=== PATIENT | male | born 1970 | race Caucasian/White ===

== ENCOUNTER 2017-07-08 22:12 | Emergency (ER) | payer SELFPAY ==
[~2017-07-08] VITALS: Ht 203.2 cm; Wt 136.1 kg
[~2017-07-08 22:12] MED LIST: CLIN300C8 PO; DIPH50VI12 PO; PRED5TAB PO
[2017-07-08 22:28] VITALS: BP 179/94
[2017-07-09] MEDS ORDERED: IBUPROFEN 600 MG TABLET. PO ONE
--- NOTE | 2017-07-09 06:24 | ED.ADGEN ---
Past History Past Medical History: Hypertension Past Surgical History: Other Smoking: Non-smoker Alcohol Use: Heavy Drug Use: None Adult General Chief Complaint Chief Complaint Left ankle pain HPI HPI Patient is a 6 foot, 8 inch male who presents with left ankle pain after climbing up and down ladders all day today. Denies illicit injury. [] Review of Systems Review of Systems Review symptoms as per history of present illness. Current Medications Current Medications Current Medications Medications (Trade) Dose Ordered Sig/Cameron Start Time Stop Time Status Last Admin Dose Admin Ibuprofen (Motrin) 600 mg 1X ONCE 07/09/17 00:00 07/09/17 01:59 DC 07/09/17 00:00 600 MG Allergies Allergies Allergies Coded Allergies Type Severity Reaction Last Updated Verified No Known Drug Allergies 03/16/14 No Physical Exam Physical Exam Constitutional: Well developed, well nourished, no acute distress, non-toxic appearance. [] HENT: Normocephalic, atraumatic, bilateral external ears normal, oropharynx moist, no oral exudates, nose normal. [] Eyes: PERRLA, EOMI, conjunctiva normal, no discharge. [] Neck: Normal range of motion, no tenderness, supple, no stridor. [] Cardiovascular:Heart rate regular rhythm, no murmur [] Lungs & Thorax: Bilateral breath sounds clear to auscultation [] Abdomen: Bowel sounds normal, soft, no tenderness, no masses, no pulsatile masses. [] Skin: Warm, dry, no erythema, no rash. [] Back: No tenderness, no CVA tenderness. [] Extremities: Left ankle, no deformity, mild diffuse edema, tenderness over anterior ankle. Minimal pain with range of motion, no rash or bony tenderness. [ ] Neurologic: Alert and oriented X 3, normal motor function, normal sensory function, no focal deficits noted. [] Psychologic: Affect normal, judgement normal, mood normal. [] Current Patient Data Vital Signs Vital Signs Date Time Temp Pulse Resp B/P (MAP) Pulse Ox O2 Delivery O2 Flow Rate FiO2 07/08/17 22:28 97.4 92 20 97 Room Air 07/08/17 22:28 179/94 (122) EKG EKG [] Radiology/Procedures Radiology/Procedures [X-ray right ankle, mild soft tissue swelling] Course & Med Decision Making Course & Med Decision Making Pertinent Labs and Imaging studies reviewed. (See chart for details) [Suspect arthritis or overuse syndrome. Recommend supportive treatment with PCP follow-up.] Final Impression Final Impression [#1 left ankle pain] Problems: Dragdiann Disclaimer Dragon Disclaimer This electronic medical record was generated, in whole or in part, using a voice recognition dictation system. MASSIMO MCMAHON DO Jul 09, 2017 06:24
--- NOTE | 2017-07-09 07:38 | RAD ---
Left ankle, 3 views, 07/08/2017: History: Severe ankle pain No fracture or or dislocation is identified. There are mild degenerative changes at the ankle joint. There is evidence of an ankle joint effusion. There is mild subcutaneous edema. IMPRESSION: 1. Mild degenerative change at the ankle joint. 2. Small joint effusion. 3. No acute bony abnormality is detected.
== END 2017-07-09 | disposition home or self-care (01) ==
LOC: ER 22:12
DX: M25.572 Pain in left ankle and joints of left foot (principal); I10 Essential (primary) hypertension; F10.10 Alcohol abuse, uncomplicated; X58.XXXA Exposure to other specified factors, initial encounter; Y93.89 Activity, other specified; Y99.8 Other external cause status; Y92.89 Other specified places as the place of occurrence of the external cause
CPT/HCPCS: 73610; 99284

== ENCOUNTER 2017-08-20 09:53 | Emergency (ER) | payer SELFPAY ==
[~2017-08-20] VITALS: Ht 203.2 cm; Wt 110.2 kg
[2017-08-20] MEDS ORDERED: IV NORMAL SALINE 1,000ML 1,000 ML IV SCH (10:11)
[2017-08-20 10:15] VITALS: BP 158/103
[2017-08-20] MEDS ORDERED: 0.9 % SODIUM CHLORIDE 10 ML DISP.SYRIN. IV PRN (10:15)
--- NOTE | 2017-08-20 10:16 | PHYS DOC ---
Past History Past Medical History: Hypertension Past Surgical History: Other Smoking: Non-smoker Alcohol Use: Heavy Drug Use: Marijuana Adult General Chief Complaint Chief Complaint: CHEST PAIN HPI HPI He is a pleasant 47-year-old male with a history of hypertension who presents with chest pain that began last week. 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 Describes a dull ache across his left chest with no radiation other than to left shoulder and arm with movements. The pain is described as dull and achy that is continuously waxing and waning based on movement of the arm. Intact patient is noted he has not been using his left shoulder much secondary to the discomfort. 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 Patient denies any numbness or tingling, shortness of breath, lightheaded dizziness or nausea vomiting or diarrhea. He said he had a little bit of nausea when he first explains the pain last week. He is also concerned that his friend 2 weeks ago suffered a heart attack when he [place]. He has a significant family history and father passed at age 52 from a major heart attack. He denies any cough,, URI symptoms, travel outside the country, lower leg swelling or pain , trauma to his chest wall or other symptoms. Differential diagnosis for chest pain: Pericarditis, myocarditis, endocarditis, pneumothorax, pneumonia, aortic dissection, esophageal spasm, esophagitis, peptic ulcer disease, acute coronary syndrome, mediastinitis, Boerhaave syndrome , musculoskeletal chest wall pain, costochondritis, intercostal strain, rib fracture, pulmonary contusion, pneumonitis, pleural effusion, pericardial effusion, pericardial tamponode, and pleurisy. Review of Systems Review of Systems Constitutional: Denies fever or chills [] Eyes: Denies change in visual acuity, redness, or eye pain [] HENT: Denies nasal congestion or sore throat [] Respiratory: Denies cough or shortness of breath [] Cardiovascular: No additional information not addressed in HPI [] GI: Denies abdominal pain, vomiting diarrhea or loose stools. Patient has had mild nausea : Denies dysuria or hematuria [] Musculoskeletal: Denies back pain or joint pain [] Integument: Denies rash or skin lesions [] Neurologic: Denies headache, focal weakness or sensory changes [] Endocrine: Denies polyuria or polydipsia [] Allergies Allergies Allergies Coded Allergies Type Severity Reaction Last Updated Verified No Known Drug Allergies 03/16/14 No Physical Exam Physical Exam Vital signs recorded on the chart patient had be hypertensive. Constitutional: Well developed, well nourished, no acute distress, non-toxic appearance. [] HENT: Normocephalic, atraumatic, bilateral external ears normal, oropharynx moist, no oral exudates, nose normal. [] Eyes: PERRLA, EOMI, conjunctiva normal, no discharge. [] Neck: Normal range of motion, no tenderness, supple, no stridor. [] Cardiovascular:Heart rate regular rhythm, no murmur patient is a slight chest wall tenderness to palpation and is slightly reproducible on exam with no clear decreased range of motion of the shoulder. Lungs & Thorax: Bilateral breath sounds clear to auscultation [] Abdomen: Bowel sounds normal, soft, no tenderness, no masses, no pulsatile masses. [] Skin: Warm, dry, no erythema, no rash. [] ] Extremities: No tenderness, no cyanosis, no clubbing, ROM intact, no edema. [] Neurologic: Alert and oriented X 3, normal motor function, normal sensory function, no focal deficits noted. [] Psychologic: Affect normal, judgement normal, mood normal. [] EKG EKG EKG timed 9:59 AM 08/23/2017 read by me demonstrated Peter QRS normal sinus rhythm with a heart rate of 71 NC interval of 186 which is normal QRS width of 94 which is normal QTC which is with her hypertension normal there is occasional PVC[] Radiology/Procedures Radiology/Procedures [] [address] [address] IMAGING REPORT Signed PATIENT: TRISTON BERGER ACCOUNT: [id number] : 1970 LOCATION: ER AGE: 47 SEX: M EXAM STATUS: REG ER ORD. PHYSICIAN: CATHY PEREZ MD REASON: chest pain PROCEDURE: CHEST PA & LATERAL Chest radiograph 08/20/2017 12:11 PM Indication: Chest pain Comparison: None available Technique: PA and lateral views of the chest are provided. Findings: Cardiomediastinal silhouette is within normal limits. No pleural effusions, pulmonary vascular congestion or pneumothorax. There is a 7.4 x 8.1 x 9.2 cm circumscribed left posterior mediastinal mass. There is no definite splaying of the posterior ribs. No erosion of the thoracic vertebrae is noted. Osseous structures are normal. Impression: 7.4 x 8.1 x 9.2 cm circumscribed mass in the left posterior mediastinum. Consideration may be given for a peripheral nerve sheath tumor such as a schwannoma or neurofibroma. Alternatively a cystic mass such as a bronchogenic cyst, enteric duplication cyst or neuroenteric cyst is a consideration. Additional solid masses would include metastatic disease. Further evaluation with chest CT with contrast is recommended. Critical findings were discussed with Dr. Perez, at 11:05 AM on 08/20/2017. DICTATED AND SIGNED BY: MAYCOL RUBIO MD DATE: 08/20/17 1059 CC: CATHY PEREZ MD; LIONEL ROUSE MD ~ [place] [id number] IMAGING REPORT Signed PATIENT: TRISTON BERGER ACCOUNT: [id number] : 1970 LOCATION: ER AGE: 47 SEX: M EXAM STATUS: REG ER ORD. PHYSICIAN: CATHY PEREZ MD REASON: abnormal Chest xray and chest pain PROCEDURE: CT CHEST W/CONTRAST CT chest with contrast 08/20/2017 Indication: Posterior mediastinal mass on chest radiograph. Comparison: Chest radiograph 08/20/2017 Technique: Multiple axial CT images of the chest were obtained after the administration of 75 mL Omnipaque 300 intravenously. Coronal and sagittal reformats are provided. Findings: Thyroid gland is normal in appearance. There are no pathologically enlarged lymph nodes in the axilla, mediastinum or hilar region. Heart size is within normal limits. There is no pericardial effusion. Thoracic aorta is normal in course and caliber. Calcified subcarinal lymph node is present. There is a 6.5 x 6.8 x 7.4 cm (AP by transverse by craniocaudal) cystic mass along the medial pleura in the left posterior mediastinum. There is a fat plane between the thoracic aorta and the cystic mass. There is no osseous erosion identified. There is no extension into the neural foramen. No osseous erosion of the adjacent ribs. There is adjacent subsegmental atelectasis. There is a 5 mm calcified granuloma in the right middle lobe. Visualized portions of the liver appear normal. Calcic effusions of the spleen likely represents sequela of prior granulomatous exposure. Visualized portions of the adrenal glands, pancreas and gallbladder are within normal limits. No suspicious osseous lesions are identified. Impression: 6.5 x 6.8 x 7.4 cm cystic lesion is identified along the medial pleura in the left posterior mediastinum. Findings are suspicious for a bronchogenic cyst versus enteric duplication cyst. A less likely consideration would be given for a cystic schwannoma. PQRS Compliance Statement: One or more of the following individualized dose reduction techniques were utilized for this examination: 1. Automated exposure control 2. Adjustment of the mA and/or kV according to patient size 3. Use of iterative reconstruction technique DICTATED AND SIGNED BY: MAYCOL RUBIO MD DATE: 08/20/17 1140 CC: CATHY PEREZ MD; LIONEL ROUSE MD ~ Course & Med Decision Making Course & Med Decision Making Pertinent Labs and Imaging studies reviewed. (See chart for details) he presents with chest pain of unclear etiology, Differential diagnosis for chest pain: Pericarditis, myocarditis, endocarditis, pneumothorax, pneumonia, aortic dissection, esophageal spasm, esophagitis, peptic ulcer disease, acute coronary syndrome, mediastinitis, Boerhaave syndrome, musculoskeletal chest wall pain, costochondritis, intercostal strain, rib fracture, pulmonary contusion, pneumonitis, pleural effusion, pericardial effusion, pericardial tamponode, and pleurisy. Was considered upon arrival patient's EKG was was unremarkable for any signs of ischemic distress or injury. Patient has a negative troponin negative proBNP negative CBC negative white count. Patient's pain is markedly improved here in the ER. Time is now 10:45 AM her review of patient's chest x-ray shows a concerning mass on the posterior wall of the left lung. It is unclear etiology distress from it could be around mass secondary to a cyst, infection or solid tumor. []Hospital radiologist called and talked about the etiology possible mass at [address] with IV contrast is reported and ordered to better characterize this mass. Is now 12:[address] scan reveals a bronchogenic cyst unlikely as a source the mass in the posterior lateral aspect of the left lung. Patient's cardiac workup is unremarkable for signs of heart damage. This does not mean he does not have heart disease. History: History was low risk based on findings listed below patient okay for discharge and follow-up with his primary care doctor Highly suspicious 2 points moderately suspicious 1. slightly suspicious 0 point EKG: ST segment depression 2. nonspecific repolarization disturbance 1. normal 0 point Age: Greater than 65 2 points, 65-45 1., less than 45 years old 0 points Risk factors:> 3 risk factors 2 points, 1-2 risk factors one point, no risk factors 0 point Troponin: > 2 times normal 2 points, 1-2 times normal 1., normal limits 0 point Total score: Score % pts MACE/n MACE Policy 0-3 32% 1.9% 0.05% Discharge 4-6 51% 413/3136 13% 1.3% Observation Risk management 7-10 17% 518/1045 50% 2.8% Observation Treatment, CAGB Impression: Hypertension, chest pain of unclear etiology, bronchogenic cyst lung mass Dragon Disclaimer Dragon Disclaimer This chart was dictated in whole or in part using Voice Recognition software in a busy, high-work load, and often noisy Emergency Department environment. It may contain unintended and wholly unrecognized errors or omissions. Departure Departure: Impression: Primary Impression: Lung mass Additional Impressions: Chest pain Hypertension Disposition: 01 HOME, SELF-CARE Condition: IMPROVED Referrals: LIONEL ROUSE MD (PCP) Patient Instructions: Chest Pain (Nonspecific), Hypertension Additional Instructions: My discharge plan Although you have low risk chest pain you May still have heart disease despite having an apparent negative workup today. I would advise that you follow-up with your primary care doctor this week to arrange follow-up with her national service officer. The national service officer will help stratify your risk for heart injury in the future. Follow up: In addition patient is asked to followup with their primary doctor, within a week for followup examination and to address patient's ongoing medical conditions. Because patient does not have a regular medical doctor, the [facility] Resource Sheet will be provided to establish care primary care. Patient is advised that in the Emergency Department primary complaints are addressed and only in light of known signs and symptoms. Patient should return immediately to the emergency department if new signs and symptoms develop or patient's condition worsens in any way. At time of discharge patient was in stable condition and had verbalized understanding of the discharge instructions. Also have a mass noted on her CT scan of your chest and your chest x-ray which is an abnormal finding and will need to be followed up by a child welfare counselor. Scripts Diazepam (VALIUM) 5 Mg Tablet 5 MG PO TID for MUSCLE SPASMS for 5 Days, #15 TAB Please use one tablet every 8 hours as needed for muscle spasms. Do not drink alcohol or use other narcotics with this medication. Prov: CATHY PEREZ MD 08/20/17 Naproxen Sodium (NAPROXEN SODIUM) 275 Mg Tablet 275 MG PO BID for 7 Days, #14 TAB Prov: CATHY PEREZ MD 08/20/17 Hydrocodone Bit/Acetaminophen (HYDROCODONE-APAP 5-325 ) 1 Each Tablet 1 TAB PO PRN Q6HRS Y for PAIN for 5 Days, #10 TAB 0 Refills Prov: CATHY PEREZ MD 08/20/17 Problem Qualifiers CATHY PEREZ MD Aug 20, 2017 10:16
[2017-08-20] MEDS ORDERED: ASPIRIN 81 MG TAB.CHEW PO ONE (10:40)
[2017-08-20 10:44] LABS: BASO # 0.1 x10^3/uL (0.0-0.2); BASO % 1 % (0-3); EOS # 0.3 x10^3/uL (0.0-0.7); EOS % 4 % (0-3); HEMATOCRIT 45.1 % (39.0-53.0); HEMOGLOBIN 15.3 g/dL (13.0-17.5); LYMPH # 2.1 x10^3/uL (1.0-4.8); LYMPH % 25 % (24-48); MEAN CORPUSCULAR HEMOGLOBIN 30 pg (25-35); MEAN CORPUSCULAR HGB CONC 34 g/dL (31-37); MEAN CORPUSCULAR VOLUME 87 fL (79-100); MONO # 0.7 x10^3/uL (0.0-1.1); MONO % 9 % (0-9); NEUT # 5.4 x10^3uL (1.8-7.7); NEUT % 62 % (31-73); PLATELET COUNT 245 x10^3/uL (140-400); RED BLOOD COUNT 5.17 x10^6/uL (4.30-5.70); RED CELL DISTRIBUTION WIDTH 13.7 % (11.5-14.5); WHITE BLOOD COUNT 8.6 x10^3/uL (4.0-11.0)
--- NOTE | 2017-08-20 11:02 | EKG ---
[address] [address] Test Date: 2017-08-20 Test Time: 09:59:51 Pat Name: TRSITON BERGER Department: Room: Gender: Independent Contractor: : 1970 Requested By: CATHY PEREZ Order Number: [id number] Reading MD: Paul Paz Measurements Intervals [place] Rate: P: GA: QRS: QRSD: T: QT: QTc: Interpretive Statements SR PVC Electronically Signed On 08-28-2017 8:15:25 CDT by Paul Paz
[2017-08-20 11:05] LABS: ALBUMIN 3.9 g/dL (3.4-5.0); CALCIUM 9.1 mg/dL (8.5-10.1); CREATININE 0.9 mg/dL (0.7-1.3); DIRECT BILIRUBIN 0.1 mg/dL (0.0-0.2); GFR 89.7; POTASSIUM 4.7 mmol/L (3.5-5.1); TOTAL BILIRUBIN 0.4 mg/dL (0.2-1.0); TOTAL PROTEIN 7.6 g/dL (6.4-8.2)
--- NOTE | 2017-08-20 11:10 | RAD ---
Chest radiograph 08/20/2017 12:11 PM Indication: Chest pain Comparison: None available Technique: PA and lateral views of the chest are provided. Findings: Cardiomediastinal silhouette is within normal limits. No pleural effusions, pulmonary vascular congestion or pneumothorax. There is a 7.4 x 8.1 x 9.2 cm circumscribed left posterior mediastinal mass. There is no definite splaying of the posterior ribs. No erosion of the thoracic vertebrae is noted. Osseous structures are normal. Impression: 7.4 x 8.1 x 9.2 cm circumscribed mass in the left posterior mediastinum. Consideration may be given for a peripheral nerve sheath tumor such as a schwannoma or neurofibroma. Alternatively a cystic mass such as a bronchogenic cyst, enteric duplication cyst or neuroenteric cyst is a consideration. Additional solid masses would include metastatic disease. Further evaluation with chest CT with contrast is recommended. Critical findings were discussed with Dr. Sal, at 11:05 AM on 08/20/2017.
[2017-08-20] MEDS ORDERED: IOHEXOL 300 MG/ML 75 ML VIAL. IV ONE (11:30)
--- NOTE | 2017-08-20 11:50 | RAD ---
CT chest with contrast 08/20/2017 Indication: Posterior mediastinal mass on chest radiograph. Comparison: Chest radiograph 08/20/2017 Technique: Multiple axial CT images of the chest were obtained after the administration of 75 mL Omnipaque 300 intravenously. Coronal and sagittal reformats are provided. Findings: Thyroid gland is normal in appearance. There are no pathologically enlarged lymph nodes in the axilla, mediastinum or hilar region. Heart size is within normal limits. There is no pericardial effusion. Thoracic aorta is normal in course and caliber. Calcified subcarinal lymph node is present. There is a 6.5 x 6.8 x 7.4 cm (AP by transverse by craniocaudal) cystic mass along the medial pleura in the left posterior mediastinum. There is a fat plane between the thoracic aorta and the cystic mass. There is no osseous erosion identified. There is no extension into the neural foramen. No osseous erosion of the adjacent ribs. There is adjacent subsegmental atelectasis. There is a 5 mm calcified granuloma in the right middle lobe. Visualized portions of the liver appear normal. Calcic effusions of the spleen likely represents sequela of prior granulomatous exposure. Visualized portions of the adrenal glands, pancreas and gallbladder are within normal limits. No suspicious osseous lesions are identified. Impression: 6.5 x 6.8 x 7.4 cm cystic lesion is identified along the medial pleura in the left posterior mediastinum. Findings are suspicious for a bronchogenic cyst versus enteric duplication cyst. A less likely consideration would be given for a cystic schwannoma. PQRS Compliance Statement: One or more of the following individualized dose reduction techniques were utilized for this examination: 1. Automated exposure control 2. Adjustment of the mA and/or kV according to patient size 3. Use of iterative reconstruction technique
[2017-08-20] MEDS ORDERED: DIAZ5TAB PO (12:10)
[2017-08-20] MEDS ORDERED: NAPR275T59 PO (12:10)
[2017-08-20] MEDS ORDERED: HYDR-2758 PO (12:10)
== END 2017-08-20 12:25 | disposition home or self-care (01) ==
LOC: ER 09:53
DX: R91.8 Other nonspecific abnormal finding of lung field (principal); R07.89 Other chest pain; I10 Essential (primary) hypertension; F12.10 Cannabis abuse, uncomplicated; F10.10 Alcohol abuse, uncomplicated
CPT/HCPCS: 36415; 71020; 71260; 80048; 80076; 82553; 83690; 83735; 83880; 84443; 84484; 85025; 93005; 96360; 99285; Q9967; J7030

== ENCOUNTER 2017-11-27 08:13 | Emergency (ER) | payer OTHER ==
[~2017-11-27 08:13] MED LIST changes: +DIAZ5TAB PO; +HYDR-2758 PO; +NAPR275T59 PO
[2017-11-27] MEDS ORDERED: IV NORMAL SALINE 1,000ML 1,000 ML IV SCH (08:35)
[2017-11-27] MEDS ORDERED: 0.9 % SODIUM CHLORIDE 10 ML DISP.SYRIN. IV PRN (08:45)
--- NOTE | 2017-11-27 08:47 | PHYS DOC ---
Past History Past Medical History: Hypertension Additional Past Medical Histor: lung mass Past Surgical History: Other Smoking: Non-smoker Alcohol Use: Occasionally Drug Use: Marijuana Adult General Chief Complaint Chief Complaint: ABDOMINAL PAIN HPI HPI Patient is a pleasant 47-year-old otherwise healthy male with a questionable history of hypertension and a lung mass that was discovered during his last evaluation for chest pain who presents with right flank/right upper quadrant abdominal pain that began 3 weeks ago. Patient noted while throwing darts at the [employer] he began having flank pain on the right it is been relatively constant waxing and waning only with movements and direct pressure as he lays on that side when he sleeps at night. It is described as a "" dull ache with no radiation to the back chest or abdomen. He denies any nausea, vomiting, diarrhea he denies any rashes abdominal wall, fevers, chills but is having some "" night sweats. Patient denies any unintentional weight loss, denies any productive cough URI symptoms or trauma. He does say he drinks alcohol on occasion but has not had any alcohol to drink after this pain began 3 weeks ago. He denies any history of DTs or alcohol withdrawal symptoms, denies any blood in stools, denies any diarrhea nausea or vomiting. He further denies any chest pain, shortness of breath or other symptoms. Similar things to come to my mind of differential diagnosis Acute pancreatitis. Appendicitis. Acute hepatitis. Peptic ulcer disease. Nonulcer dyspepsia. Irritable bowel disease. Functional gallbladder disorder. Sphincter of Oddi dysfunction. Diseases of the right kidney. Right-sided pneumonia. Irpk-Atad-Tpbgzg syndrome Subhepatic or intraabdominal abscess. Perforated viscus. Cardiac ischemia. Black spider envenomation UTI, pyonephritis, kidney stone, abdominal aneurysm, hepatic congestion, hepatomegaly, Review of Systems Review of Systems Constitutional: Denies fever or chills [] Eyes: Denies change in visual acuity, redness, or eye pain [] HENT: Denies nasal congestion or sore throat [] Respiratory: Denies cough or shortness of breath [] Cardiovascular: No additional information not addressed in HPI [] GI: Positive for right flank pain right upper abdominal pain negative for nausea , vomiting, diarrhea, constipation, change in stool : Denies dysuria or hematuria [] Musculoskeletal: Denies back pain or joint pain [] Integument: Denies rash or skin lesions [] Neurologic: Denies headache, focal weakness or sensory changes [] Endocrine: Denies polyuria or polydipsia [] All other systems were reviewed and found to be within normal limits, except as documented in this note. Allergies Allergies Allergies Coded Allergies Type Severity Reaction Last Updated Verified No Known Drug Allergies 03/16/14 No Physical Exam Physical Exam Vital signs recorded on the chart at this time patient be hypertensive which is chronic per patient Constitutional: Well developed, well nourished, no acute distress, non-toxic appearance. [] HENT: Normocephalic, atraumatic, bilateral external ears normal, oropharynx moist, no oral exudates, nose normal. [] Eyes: PERRLA, EOMI, conjunctiva normal, no discharge. [] Neck: Normal range of motion, no tenderness, supple, no stridor. [] Cardiovascular:Heart rate regular rhythm, no murmur [] Lungs & Thorax: Bilateral breath sounds clear to auscultation [] Abdomen: Bowel sounds normal. Abdomen there is some tenderness to palpation in the right upper quadrant with no specific pulsatile masses noted no Kingsley's or McBurney's point tenderness there is some suspected hepatomegaly Skin: Warm, dry, no erythema, no rash. [] Back: No tenderness, no CVA tenderness. [] Extremities: No tenderness, no cyanosis, no clubbing, ROM intact, no edema. [] Neurologic: Alert and oriented X 3, normal motor function, normal sensory function, no focal deficits noted. [] Psychologic: Affect normal, judgement normal, mood normal. [] Current Patient Data Lab Results Laboratory Tests Test 11/27/17 08:51 White Blood Count 7.1 x10^3/uL (4.0-11.0) Red Blood Count 5.22 x10^6/uL (4.30-5.70) Hemoglobin 15.5 g/dL (13.0-17.5) Hematocrit 45.8 % (39.0-53.0) Mean Corpuscular Volume 88 fL (79-100) Mean Corpuscular Hemoglobin 30 pg (25-35) Mean Corpuscular Hemoglobin Concent 34 g/dL (31-37) Red Cell Distribution Width 13.6 % (11.5-14.5) Platelet Count 232 x10^3/uL (140-400) Neutrophils (%) (Auto) 66 % (31-73) Lymphocytes (%) (Auto) 23 % (24-48) L Monocytes (%) (Auto) 8 % (0-9) Eosinophils (%) (Auto) 3 % (0-3) Basophils (%) (Auto) 1 % (0-3) Neutrophils # (Auto) 4.7 x10^3uL (1.8-7.7) Lymphocytes # (Auto) 1.6 x10^3/uL (1.0-4.8) Monocytes # (Auto) 0.5 x10^3/uL (0.0-1.1) Eosinophils # (Auto) 0.2 x10^3/uL (0.0-0.7) Basophils # (Auto) 0.0 x10^3/uL (0.0-0.2) Sodium Level 138 mmol/L (136-145) Potassium Level 4.6 mmol/L (3.5-5.1) Chloride Level 102 mmol/L (98-107) Carbon Dioxide Level 28 mmol/L (21-32) Anion Gap 8 (6-14) Blood Urea Nitrogen 16 mg/dL (8-26) Creatinine 0.8 mg/dL (0.7-1.3) Estimated GFR (Cockcroft-Gault) 102.7 Glucose Level 105 mg/dL (70-99) H Calcium Level 9.1 mg/dL (8.5-10.1) Total Bilirubin 0.4 mg/dL (0.2-1.0) Direct Bilirubin 0.1 mg/dL (0.0-0.2) Aspartate Amino Transferase (AST) 18 U/L (15-37) Alanine Aminotransferase (ALT) 29 U/L (16-63) Alkaline Phosphatase 51 U/L (46-116) Creatine Kinase 53 U/L (39-308) Creatine Kinase MB (Mass) 0.9 ng/mL (0.0-3.6) Creatine Kinase MB Relative Index 1.7 % (0-4) Troponin I Quantitative 0.021 ng/mL (0-0.055) Total Protein 7.7 g/dL (6.4-8.2) Albumin 3.9 g/dL (3.4-5.0) Lipase 132 U/L (73-393) EKG EKG [] Radiology/Procedures Radiology/Procedures [] [address] [address] IMAGING REPORT Signed PATIENT: TRISTON BERGER ACCOUNT: [id number] : 1970 LOCATION: ER AGE: 47 SEX: M EXAM STATUS: REG ER ORD. PHYSICIAN: CATHY PEREZ MD REASON: ruq ab pain PROCEDURE: CT ABD PELV W/ IV CONTRST ONLY CT chest abdomen pelvis with IV contrast History: Right upper quadrant abdominal pain for 3 weeks. Comparison: None. Technique: After administration of intravenous contrast only, 75 mL Omnipaque 300, helical CT of the chest, abdomen, and pelvis was performed from the lung apices through the ischial tuberosities. One or more of the following individualized dose reduction techniques were utilized for the study: Automated exposure control Adjustment of mA and/or kV according to patient's size Use of iterative reconstruction technique. Findings: Evaluation of enteric structures may be limited by lack of oral contrast. Liver is unremarkable. Calcified splenic granulomata are seen. The pancreas, gallbladder, and bilateral adrenal glands are unremarkable. Bilateral kidneys enhance symmetrically. Mild calcified aortic atherosclerosis is seen. Circumaortic left renal vein is present. Urinary bladder is unremarkable. No free air or free fluid is seen in the abdomen or pelvis. No bowel obstruction or inflammation is seen. Appendix is without evidence of inflammation. Left greater than right fat-containing inguinal hernias can be seen. Right lateral abdominal wall demonstrates intramuscular lipoma measuring roughly 8 x 2 cm in axial dimension x 9.5 cm in craniocaudal dimension. Multilevel degeneration is seen in the spine. Impression: 1. No acute abnormality identified in the abdomen or pelvis. 2. Left greater than right fat-containing inguinal hernias. DICTATED AND SIGNED BY: TRISTON BRYANT MD DATE: 11/27/17 0951 CC: CATHY PEERZ MD; LIONEL ROUSE MD ~ Course & Med Decision Making Course & Med Decision Making Pertinent Labs and Imaging studies reviewed. (See chart for details) []he presents with flank pain on the right with localized tenderness after playing darts. Acute pancreatitis. Appendicitis. Acute hepatitis. Peptic ulcer disease. Nonulcer dyspepsia. Irritable bowel disease. Functional gallbladder disorder. Sphincter of Oddi dysfunction. Diseases of the right kidney. Right-sided pneumonia. Vsun-Hvsy-Phlqul syndrome Subhepatic or intraabdominal abscess. Perforated viscus. Cardiac ischemia. Black spider envenomation UTI, pyonephritis, kidney stone, abdominal aneurysm, differential diagnosis was considered Impression CBC, CMP troponin are all negative at [address] scan read by radiology demonstrates an abdominal wall lipoma that resides in the soft tissue. There is no intra-abdominal pathology. Time is perceiving as hepatomegaly on physical exam was actually the lipoma in the abdominal wall. Patient denied discussed treatment options for the lipoma to include localized surgery and anti-inflammatories for his localized pain. Patient will be given a referral to general surgery or plastics to talk about options for treatment. discharge: I've spoken with the patient and/or caregivers. I've explained the patient's condition, diagnosis and treatment plan based on information available to me at this time. I've answered the patient's and/or caregivers questions and addressed any concerns. The patient and/or caregivers have a good understanding the patient's diagnosis, condition and treatment plan as can be expected at this point. Vital signs have been stabilized. The patient's condition is stable for discharge from the emergency department. The patient will pursue further outpatient evaluation with her primary care provider or other designated consulting physician as outlined in the discharge instructions. Patient and/or caregivers are agreeable to this plan of care and follow-up instructions have been explained in detail. The patient and/or caregivers have received these instructions in written format and expressed understanding of these discharge instructions. The patient and her caregivers are aware that if any significant change in condition or worsening of symptoms should prompt him to immediately return to this of the closest emergency department. If an emergent department is not readily available I would encourage him to call 911. Eliud Disclaimer Dragon Disclaimer This electronic medical record was generated, in whole or in part, using a voice recognition dictation system. Departure Departure: Impression: Primary Impression: Lipoma of abdominal wall Disposition: HOME, SELF-CARE Condition: IMPROVED Referrals: LIONEL ROUSE MD (PCP) Patient Instructions: Lipoma Additional Instructions: discharge: I've spoken with the patient and/or caregivers. I've explained the patient's condition, diagnosis and treatment plan based on information available to me at this time. I've answered the patient's and/or caregivers questions and addressed any concerns. The patient and/or caregivers have a good understanding the patient's diagnosis, condition and treatment plan as can be expected at this point. Vital signs have been stabilized. The patient's condition is stable for discharge from the emergency department. The patient will pursue further outpatient evaluation with her primary care provider or other designated consulting physician as outlined in the discharge instructions. Patient and/or caregivers are agreeable to this plan of care and follow-up instructions have been explained in detail. The patient and/or caregivers have received these instructions in written format and expressed understanding of these discharge instructions. The patient and her caregivers are aware that if any significant change in condition or worsening of symptoms should prompt him to immediately return to this of the closest emergency department. If an emergent department is not readily available I would encourage him to call 911. Scripts Naproxen Sodium (NAPROXEN SODIUM) 275 Mg Tablet 275 MG PO BID for 7 Days, #14 TAB Prov: CATHY PEREZ MD 11/27/17 CATHY PEREZ MD Nov 27, 2017 08:47
[2017-11-27] MEDS ORDERED: IOHEXOL 300 MG/ML 75 ML VIAL. IV ONE (09:15)
[2017-11-27] MEDS ORDERED: ONDANSETRON PF 4 MG/2 ML VIAL. IV ONE (09:15)
[2017-11-27] MEDS ORDERED: KETOROLAC 30 MG/ML VIAL. IV ONE (09:15)
[2017-11-27 09:21] LABS: BASO % 1 % (0-3); EOS # 0.2 x10^3/uL (0.0-0.7); EOS % 3 % (0-3); HEMATOCRIT 45.8 % (39.0-53.0); HEMOGLOBIN 15.5 g/dL (13.0-17.5); LYMPH # 1.6 x10^3/uL (1.0-4.8); LYMPH % 23 % (24-48); MEAN CORPUSCULAR HEMOGLOBIN 30 pg (25-35); MEAN CORPUSCULAR HGB CONC 34 g/dL (31-37); MEAN CORPUSCULAR VOLUME 88 fL (79-100); MONO # 0.5 x10^3/uL (0.0-1.1); MONO % 8 % (0-9); NEUT # 4.7 x10^3uL (1.8-7.7); NEUT % 66 % (31-73); PLATELET COUNT 232 x10^3/uL (140-400); RED BLOOD COUNT 5.22 x10^6/uL (4.30-5.70); RED CELL DISTRIBUTION WIDTH 13.6 % (11.5-14.5); WHITE BLOOD COUNT 7.1 x10^3/uL (4.0-11.0)
[2017-11-27 09:29] LABS: ALBUMIN 3.9 g/dL (3.4-5.0); CALCIUM 9.1 mg/dL (8.5-10.1); CREATININE 0.8 mg/dL (0.7-1.3); DIRECT BILIRUBIN 0.1 mg/dL (0.0-0.2); GFR 102.7; POTASSIUM 4.6 mmol/L (3.5-5.1); TOTAL BILIRUBIN 0.4 mg/dL (0.2-1.0); TOTAL PROTEIN 7.7 g/dL (6.4-8.2)
--- NOTE | 2017-11-27 09:58 | RAD ---
CT chest abdomen pelvis with IV contrast History: Right upper quadrant abdominal pain for 3 weeks. Comparison: None. Technique: After administration of intravenous contrast only, 75 mL Omnipaque 300, helical CT of the chest, abdomen, and pelvis was performed from the lung apices through the ischial tuberosities. One or more of the following individualized dose reduction techniques were utilized for the study: Automated exposure control Adjustment of mA and/or kV according to patient's size Use of iterative reconstruction technique. Findings: Evaluation of enteric structures may be limited by lack of oral contrast. Liver is unremarkable. Calcified splenic granulomata are seen. The pancreas, gallbladder, and bilateral adrenal glands are unremarkable. Bilateral kidneys enhance symmetrically. Mild calcified aortic atherosclerosis is seen. Circumaortic left renal vein is present. Urinary bladder is unremarkable. No free air or free fluid is seen in the abdomen or pelvis. No bowel obstruction or inflammation is seen. Appendix is without evidence of inflammation. Left greater than right fat-containing inguinal hernias can be seen. Right lateral abdominal wall demonstrates intramuscular lipoma measuring roughly 8 x 2 cm in axial dimension x 9.5 cm in craniocaudal dimension. Multilevel degeneration is seen in the spine. Impression: 1. No acute abnormality identified in the abdomen or pelvis. 2. Left greater than right fat-containing inguinal hernias.
[2017-11-27] MEDS ORDERED: NAPR275T59 PO (10:09)
[2017-11-27 10:27] LABS: BILIRUBIN,URINE NEG (NEG); CLARITY,URINE CLEAR; COLOR,URINE STRAW; GLUCOSE,URINE NEG (NEG)
[2017-11-27 10:28] LABS: BACTERIA,URINE 0 /HPF (0-FEW); NITRITE,URINE NEG (NEG); RBC,URINE 0 /HPF (0-2); SQUAMOUS EPITHELIAL CELL,UR OCC /LPF; UROBILINOGEN,URINE 0.2 mg/dL (0.2 mg/dL); WBC,URINE 0 /HPF (0-4)
[2017-11-27 10:30] VITALS: BP 158/104
--- NOTE | 2017-11-27 12:17 | EKG ---
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
== END 2017-11-27 10:30 | disposition home or self-care (01) ==
LOC: ER 08:13
DX: D17.1 Benign lipomatous neoplasm of skin and subcutaneous tissue of trunk (principal); I10 Essential (primary) hypertension; F12.10 Cannabis abuse, uncomplicated
CPT/HCPCS: 36415; 74177; 80048; 80076; 81001; 82553; 83690; 84484; 85025; 93005; 96361; 96374; 96375; 99285; J1885; J2405; Q9967; J7030

== ENCOUNTER 2018-01-14 14:57 | Inpatient (IN) | payer SELFPAY ==
[~2018-01-14] VITALS: Ht 203.2 cm; Wt 128.8 kg
--- NOTE | 2018-01-14 15:15 | EKG ---
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
[2018-01-14 16:26] LABS: CALCIUM 9.5 mg/dL (8.5-10.1); CREATININE 0.9 mg/dL (0.7-1.3); GFR 89.7; POTASSIUM 4.2 mmol/L (3.5-5.1)
[2018-01-14] MEDS ORDERED: ONDANSETRON PF 4 MG/2 ML VIAL. IV PRN (17:45)
[2018-01-14 17:47] LABS: BACTERIA,URINE 0 /HPF (0-FEW); BILIRUBIN,URINE NEG (NEG); CLARITY,URINE CLEAR; COLOR,URINE STRAW; GLUCOSE,URINE NEG (NEG); NITRITE,URINE NEG (NEG); RBC,URINE 0 /HPF (0-2); SQUAMOUS EPITHELIAL CELL,UR FEW /LPF; UROBILINOGEN,URINE 0.2 mg/dL (0.2 mg/dL); WBC,URINE OCC /HPF (0-4)
--- NOTE | 2018-01-14 17:49 | PHYS DOC ---
Past History Past Medical History: Hypertension Additional Past Medical Histor: lung mass Past Surgical History: No Surgical History Smoking: Non-smoker Alcohol Use: None Drug Use: None Adult General Chief Complaint Chief Complaint: CHEST PAIN HPI HPI Patient is a 47 year old M who presents with moderate central pressure-like pain in his chest that started 3 days ago and has been fluctuating in intensity. He describes associated sweating and shortness of breath. He states that his symptoms are worse with activity and improved with rest. He does have a history of hypertension. He was a smoker but quit 5 years ago. He has a significant family history of cardiac disease including the of both his father and grandfather in their early 50s from heart attack. He did recently begin Ambien for sleeping difficulty approximately one week ago. His significant other states that he stops breathing multiple times at night and this seems to be worsened since beginning the Ambien. Review of Systems Review of Systems Constitutional: Denies fever or chills [] Eyes: Denies change in visual acuity, redness, or eye pain [] HENT: Denies nasal congestion or sore throat [] Respiratory: Negative except history of present illness Cardiovascular: No additional information not addressed in HPI [] GI: Denies abdominal pain, nausea, vomiting, bloody stools or diarrhea [] : Denies dysuria or hematuria [] Musculoskeletal: Denies back pain or joint pain [] Integument: Denies rash or skin lesions [] Neurologic: Denies headache, focal weakness or sensory changes [] Endocrine: Denies polyuria or polydipsia [] All other systems were reviewed and found to be within normal limits, except as documented in this note. Family History Family History Father and grandfather in early 50s from heart attack Current Medications Current Medications Current medications reviewed Allergies Allergies Allergies Coded Allergies Type Severity Reaction Last Updated Verified No Known Drug Allergies 11/27/17 No Physical Exam Physical Exam Constitutional: Well developed, well nourished, no acute distress, non-toxic appearance. [] HENT: Normocephalic, atraumatic, Eyes: EOMI, conjunctiva normal, no discharge. [] Neck: Normal range of motion, no tenderness, supple, no stridor. [] Cardiovascular:Heart rate regular rhythm, occasional PAC Lungs & Thorax: Bilateral breath sounds clear to auscultation [] Abdomen: Bowel sounds normal, soft, no tenderness, no masses, no pulsatile masses. [] Skin: Warm, dry, no erythema, no rash. [] Multiple skin tags noted Back: No tenderness, no CVA tenderness. [] Extremities: No tenderness, no cyanosis, no clubbing, ROM intact, no edema. [] Neurologic: Alert and oriented X 3, normal motor function, normal sensory function, no focal deficits noted. [] Psychologic: Affect normal, judgement normal, mood normal. [] Current Patient Data Vital Signs Vital Signs Date Time Temp Pulse Resp B/P (MAP) Pulse Ox O2 Delivery O2 Flow Rate FiO2 01/14/18 16:10 62 168/79 (108) 01/14/18 15:24 20 98 Lab Results Laboratory Tests Test 01/14/18 15:41 D-Dimer (Rylee) 0.25 mg/L (0.00-0.50) Sodium Level 141 mmol/L (136-145) Potassium Level 4.2 mmol/L (3.5-5.1) Chloride Level 103 mmol/L (98-107) Carbon Dioxide Level 28 mmol/L (21-32) Anion Gap 10 (6-14) Blood Urea Nitrogen 19 mg/dL (8-26) Creatinine 0.9 mg/dL (0.7-1.3) Estimated GFR (Cockcroft-Gault) 89.7 Glucose Level 81 mg/dL (70-99) Calcium Level 9.5 mg/dL (8.5-10.1) Creatine Kinase 707 U/L (39-308) H Creatine Kinase MB (Mass) 0.9 ng/mL (0.0-3.6) Creatine Kinase MB Relative Index 0.1 % (0-4) Troponin I Quantitative 0.030 ng/mL (0-0.055) EKG EKG Normal sinus rhythm with mild left axis deviation Radiology/Procedures Radiology/Procedures [] Course & Med Decision Making Course & Med Decision Making Pertinent Labs and Imaging studies reviewed. (See chart for details) [] Dragon Disclaimer Dragon Disclaimer This electronic medical record was generated, in whole or in part, using a voice recognition dictation system. Departure Departure: Impression: Primary Impression: Chest pain Disposition: ADMITTED INPATIENT Admitting Physician: Nadeem Randle Condition: STABLE Referrals: NADEEM RANDLE MD (PCP) Problem Qualifiers Primary Impression: Chest pain Chest pain type: unspecified Qualified Codes: R07.9 - Chest pain, unspecified NADEEM GARZON MD Jan 14, 2018 17:49
[2018-01-14] MEDS ORDERED: ASPIRIN 81 MG TAB.CHEW ONE (17:52)
[2018-01-14] MEDS ORDERED: LOSA1TAB25 PO (17:55)
[2018-01-14] MEDS ORDERED: ZOLP10TA PO (17:55)
[2018-01-14] MEDS ORDERED: ASPIRIN 81 MG TAB.CHEW PO ONE (18:00)
[2018-01-14] MEDS ORDERED: MORPHINE SULFATE 4 MG/ML DISP.SYRIN. IV PRN (18:45)
[2018-01-14] MEDS ORDERED: ACETAMINOPHEN 325 MG TABLET PO PRN (18:45)
[2018-01-14 20:00] VITALS: BP 174/87
[2018-01-14 20:40] LABS: BASO # 0.1 x10^3/uL (0.0-0.2); BASO % 1 % (0-3); EOS # 0.3 x10^3/uL (0.0-0.7); EOS % 3 % (0-3); HEMATOCRIT 42.8 % (39.0-53.0); HEMOGLOBIN 14.6 g/dL (13.0-17.5); LYMPH # 2.5 x10^3/uL (1.0-4.8); LYMPH % 27 % (24-48); MEAN CORPUSCULAR HEMOGLOBIN 30 pg (25-35); MEAN CORPUSCULAR HGB CONC 34 g/dL (31-37); MEAN CORPUSCULAR VOLUME 87 fL (79-100); MONO # 0.7 x10^3/uL (0.0-1.1); MONO % 8 % (0-9); NEUT # 5.6 x10^3uL (1.8-7.7); NEUT % 61 % (31-73); PLATELET COUNT 238 x10^3/uL (140-400); RED BLOOD COUNT 4.94 x10^6/uL (4.30-5.70); RED CELL DISTRIBUTION WIDTH 14.1 % (11.5-14.5); WHITE BLOOD COUNT 9.1 x10^3/uL (4.0-11.0)
[2018-01-14] MEDS: ZOLPIDEM 5 MG TABLET. PO SCH (21:30)
[2018-01-14 23:00] VITALS: BP 154/80
[2018-01-14] MEDS: HEPARIN PF for SUB-Q USE 5,000 UNIT/0.5 ML VIAL. SQ SCH (23:16)
[2018-01-15 06:00] VITALS: BP 144/82
[2018-01-15] MEDS: HEPARIN PF for SUB-Q USE 5,000 UNIT/0.5 ML VIAL. SQ SCH ×3 (06:29→21:21)
[2018-01-15 07:01] LABS: BASO # 0.1 x10^3/uL (0.0-0.2); BASO % 1 % (0-3); CALCIUM 8.9 mg/dL (8.5-10.1); CREATININE 0.8 mg/dL (0.7-1.3); EOS # 0.2 x10^3/uL (0.0-0.7); EOS % 4 % (0-3); GFR 102.7; HEMATOCRIT 41.1 % (39.0-53.0); LYMPH # 2.2 x10^3/uL (1.0-4.8); LYMPH % 31 % (24-48); MEAN CORPUSCULAR HEMOGLOBIN 30 pg (25-35); MEAN CORPUSCULAR HGB CONC 34 g/dL (31-37); MEAN CORPUSCULAR VOLUME 87 fL (79-100); MONO # 0.6 x10^3/uL (0.0-1.1); MONO % 9 % (0-9); NEUT # 3.9 x10^3uL (1.8-7.7); NEUT % 56 % (31-73); PLATELET COUNT 209 x10^3/uL (140-400); RED BLOOD COUNT 4.73 x10^6/uL (4.30-5.70); RED CELL DISTRIBUTION WIDTH 14.1 % (11.5-14.5); WHITE BLOOD COUNT 6.9 x10^3/uL (4.0-11.0)
[2018-01-15] MEDS: hydroCHLOROthiazide 12.5 MG CAPSULE PO SCH (08:37)
[2018-01-15] MEDS: LOSARTAN 50 MG TABLET. PO SCH (08:37)
[2018-01-15 08:42] VITALS: BP 152/89
--- NOTE | 2018-01-15 09:51 | PDOC2 ---
CONSULT Date of Admission DATE: 01/15/18 TIME: 09:30 Reason for Consult: chest pain Problem List Problems Medical Problems: (1) Chest pain Status: Acute History of Present Illness Mr Samaniego is a 47 year old male, with a history of hypertension and family history of premature coronary disease, who presented with complaints of chest pain and dyspnea. He reports that he had sudden onset of sharp stabbing midsternal pain that was non radiating, non exertional and waxed and waned for about 2 hours. He reports that it felt a little better if he got up and moved around and with drinking cold water. He reports a couple months of mild dyspnea on exertion with walking up stairs at work but has not needed to decrease activity. He reports a couple weeks of shortness of breath at night when laying down to sleep which improves with sitting up. He complains of progressive fatigue and needing naps in the day, snoring and am fatigue. He does state that he has had trouble sleeping recently due to his dyspnea and some right side pain that has caused him to change sleeping positions. He reports an episode in the last couple days of feeling his heart was pounding. He reports swelling in his ankles and lower extremities that has improved with recent addition of HCTZ to his blood pressure regimen but no change in his dyspnea. He denies lightheadedness or syncope. Past Medical History hypertension, mediastinal mass, lipomas Past Surgical History lumbar surgery Family History father with cardiomyopathy and bypass surgery prior to age 40 Social History non smoker, social ETOH, no illicit drug use Current Medications Current Medications Ondansetron HCl (Zofran) 4 mg PRN Q4HRS PRN IV NAUSEA/VOMITING; Start 01/14/18 at 17:45; Stop 01/15/18 at 17:44 Aspirin (Children'S Aspirin) 324 mg 1X ONCE PO Last administered on 01/14/18at 17:54; Start 01/14/18 at 18:00; Stop 01/14/18 at 18:01; Status DC Aspirin (Children'S Aspirin) 81 mg STK-MED ONCE .ROUTE ; Start 01/14/18 at 17:52 ; Stop 01/14/18 at 17:53; Status DC Losartan Potassium (Cozaar) 100 mg DAILY PO Last administered on 01/15/18at 08: 37; Start 01/15/18 at 09:00 Zolpidem Tartrate (Ambien) 10 mg HS PO Last administered on 01/14/18at 21:30; Start 01/14/18 at 21:00 Heparin Sodium (Porcine) (Heparin Sq) 5,000 unit Q8HRS SQ Last administered on 01/15/18at 06:29; Start 01/14/18 at 22:00 Acetaminophen (Tylenol) 650 mg PRN Q6HRS PRN PO Headaches, Temp > 101.5F; Start 01/14/18 at 18:45 Morphine Sulfate (Morphine 4mg Syringe) 2 mg PRN Q1HR PRN IV PAIN; Start at 18:45 Hydrochlorothiazide (Microzide) 12.5 mg DAILY PO Last administered on at 08:37; Start 01/15/18 at 09:00 Active Scripts Active Reported Ambien (Zolpidem Tartrate) 10 Mg Tablet 1 Tab PO QHS Losartan-Hctz 100-12.5 Mg Tab (Losartan/Hydrochlorothiazide) 1 Each Tablet 1 Tab PO DAILY Allergies: Coded Allergies: No Known Drug Allergies (Unverified , 11/27/17) Review of System as per HPI or negative General: Alert, Oriented X3, Cooperative, No acute distress HEENT: Atraumatic, EOMI, Mucous membr. moist/pink, Other (No carotid bruits, No JVD/HJR) Heart: Regular rate, Normal S1, Normal S2, Other (no obvious murmurs, no gallops, clicks or rubs) Abdomen: Normal bowel sounds, Soft, No tenderness Extremities: No cyanosis, No edema, Normal pulses Neuro: Normal speech, Strength at 5/5 X4 ext, Cranial nerves 3-12 NL Psych/Mental Status: Mental status NL, Mood NL VITALS Vital Signs Date Time Temp Pulse Resp B/P (MAP) Pulse Ox O2 Delivery O2 Flow Rate FiO2 01/15/18 08:42 68 18 152/89 (110) 95 Room Air 01/15/18 06:00 97.7 Labs Laboratory Tests Test 01/14/18 15:41 01/14/18 16:52 01/14/18 20:30 01/15/18 02:35 D-Dimer (Rylee) 0.25 mg/L (0.00-0.50) Sodium Level 141 mmol/L (136-145) Potassium Level 4.2 mmol/L (3.5-5.1) Chloride Level 103 mmol/L (98-107) Carbon Dioxide Level 28 mmol/L (21-32) Anion Gap 10 (6-14) Blood Urea Nitrogen 19 mg/dL (8-26) Creatinine 0.9 mg/dL (0.7-1.3) Estimated GFR (Cockcroft-Gault) 89.7 Glucose Level 81 mg/dL (70-99) Calcium Level 9.5 mg/dL (8.5-10.1) Creatine Kinase 707 U/L (39-308) Creatine Kinase MB (Mass) 0.9 ng/mL (0.0-3.6) Creatine Kinase MB Relative Index 0.1 % (0-4) Troponin I Quantitative 0.030 ng/mL (0-0.055) 0.031 ng/mL (0-0.055) 0.030 ng/mL (0-0.055) Urine Collection Type Unknown Urine Color Straw Urine Clarity Clear Urine pH 5.0 Urine Specific [place] 1.010 Urine Protein Neg (NEG-TRACE) Urine Glucose (UA) Neg mg/dL (NEG) Urine Ketones (Stick) Neg mg/dL (NEG) Urine Blood Neg (NEG) Urine Nitrite Neg (NEG) Urine Bilirubin Neg (NEG) Urine Urobilinogen Dipstick 0.2 mg/dL (0.2 mg/dL) Urine Leukocyte Esterase Neg (NEG) Urine RBC 0 /HPF (0-2) Urine WBC Occ /HPF (0-4) Urine Squamous Epithelial Cells Few /LPF Urine Bacteria 0 /HPF (0-FEW) White Blood Count 9.1 x10^3/uL (4.0-11.0) Red Blood Count 4.94 x10^6/uL (4.30-5.70) Hemoglobin 14.6 g/dL (13.0-17.5) Hematocrit 42.8 % (39.0-53.0) Mean Corpuscular Volume 87 fL (79-100) Mean Corpuscular Hemoglobin 30 pg (25-35) Mean Corpuscular Hemoglobin Concent 34 g/dL (31-37) Red Cell Distribution Width 14.1 % (11.5-14.5) Platelet Count 238 x10^3/uL (140-400) Neutrophils (%) (Auto) 61 % (31-73) Lymphocytes (%) (Auto) 27 % (24-48) Monocytes (%) (Auto) 8 % (0-9) Eosinophils (%) (Auto) 3 % (0-3) Basophils (%) (Auto) 1 % (0-3) Neutrophils # (Auto) 5.6 x10^3uL (1.8-7.7) Lymphocytes # (Auto) 2.5 x10^3/uL (1.0-4.8) Monocytes # (Auto) 0.7 x10^3/uL (0.0-1.1) Eosinophils # (Auto) 0.3 x10^3/uL (0.0-0.7) Basophils # (Auto) 0.1 x10^3/uL (0.0-0.2) Test 01/15/18 05:42 White Blood Count 6.9 x10^3/uL (4.0-11.0) Red Blood Count 4.73 x10^6/uL (4.30-5.70) Hemoglobin 14.0 g/dL (13.0-17.5) Hematocrit 41.1 % (39.0-53.0) Mean Corpuscular Volume 87 fL (79-100) Mean Corpuscular Hemoglobin 30 pg (25-35) Mean Corpuscular Hemoglobin Concent 34 g/dL (31-37) Red Cell Distribution Width 14.1 % (11.5-14.5) Platelet Count 209 x10^3/uL (140-400) Neutrophils (%) (Auto) 56 % (31-73) Lymphocytes (%) (Auto) 31 % (24-48) Monocytes (%) (Auto) 9 % (0-9) Eosinophils (%) (Auto) 4 % (0-3) Basophils (%) (Auto) 1 % (0-3) Neutrophils # (Auto) 3.9 x10^3uL (1.8-7.7) Lymphocytes # (Auto) 2.2 x10^3/uL (1.0-4.8) Monocytes # (Auto) 0.6 x10^3/uL (0.0-1.1) Eosinophils # (Auto) 0.2 x10^3/uL (0.0-0.7) Basophils # (Auto) 0.1 x10^3/uL (0.0-0.2) Sodium Level 140 mmol/L (136-145) Potassium Level 4.0 mmol/L (3.5-5.1) Chloride Level 105 mmol/L (98-107) Carbon Dioxide Level 27 mmol/L (21-32) Anion Gap 8 (6-14) Blood Urea Nitrogen 14 mg/dL (8-26) Creatinine 0.8 mg/dL (0.7-1.3) Estimated GFR (Cockcroft-Gault) 102.7 Glucose Level 98 mg/dL (70-99) Calcium Level 8.9 mg/dL (8.5-10.1) Magnesium Level 2.0 mg/dL (1.8-2.4) Images EKG - sinus rhythm, non specific t abn, delayed R wave progression. no acute ischemic changes Assessment/Plan 1. chest pain, atypical - Candy indeterminate, check lipids and echo. Aspirin daily. Ambulate. If no recurrent chest pain and echo normal, outpatient MPI. 2. dyspnea, on exertion and orthopnea - check echo, clinically he does not appear significantly volume overloaded. 3. mediastinal mass - CT chest 4. hypertension, uncontrolled - continue ARB, HCTZ. no beta denise due to borderline bradycardia, add Norvasc. Could consider combining to tribenzor as outpatient. 5. fatigue, progressive - progressive fatigue could be anginal equivalent. Also components of am fatigue and snoring suggest possible sleep apnea. Above testing and suggest outpatient sleep study 6. family history of premature coronary disease 7. mild hyperlipidemia by history - check lipids, statin if indicated. Problems: LILIBETH WEI APRN Jan 15, 2018 09:50
[2018-01-15] MEDS ORDERED: IOHEXOL 300 MG/ML 75 ML VIAL. IV ONE (10:20)
[2018-01-15 10:25] VITALS: BP 138/84
[2018-01-15] MEDS: amLODIPine BESYLATE 5 MG TABLET PO SCH (11:36)
--- NOTE | 2018-01-15 11:44 | RAD ---
CT CHEST W/CONTRAST Indication: Chest pain, dyspnea, mediastinal mass Technique: Postcontrast CT imaging was performed of the chest, multiplanar reconstruction images submitted. One or more of the following individualized dose reduction techniques were utilized for this examination: 1. Automated exposure control 2. Adjustment of the mA and/or kV according to patient size 3. Use of iterative reconstruction technique. Contrast: 75 cc Omnipaque 300 Comparison: August 20, 2017 Findings: There is again 6.7 cm transverse by 6.9 cm AP by 7.3 cm cystic lesion along the left posterior pleural surface, internal density measurements about 61 Hounsfield units. This is more internally hyperdense on this exam than previously and questionably very slightly larger on the order of about 0.2 cm in all planes. There is adjacent minimal pleural fluid. There is adjacent compressive atelectasis. No new lymphadenopathy is identified of the chest. There is again calcified subcarinal node. There is no pericardial effusion, pneumothorax, infiltrate. Major airways are patent. IMPRESSION: 1. There is again round pleural-based lesion of the left posterior hemithorax. This is internally more hyperdense than on previous exam, may be due to component of internal complex fluid or hemorrhage, very slightly larger than previously. There is small adjacent pleural effusion. 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 Electronically signed by: Petey Miller MD (01/15/2018 11:41 AM) [id number]
--- NOTE | 2018-01-15 12:32 | HP ---
ADMIT DATE: 01/14/2018 HISTORY OF PRESENT ILLNESS: A 47-year-old male came in with chest pain, night sweats on the lying down. The patient was admitted to the hospital for further evaluation and treatment. Apparently, initially had a slight elevation of his troponin and consequently was admitted. The patient's past medical history, the patient in the past was noted to have a 6 x 6 x 7 cm cystic lesion along the medial pleura in the left posterior mediastinum, possible bronchogenic cyst. He has been worked up for them. We will repeat a CT today to make sure that has not gotten any bigger causing some of the discomfort. In any case, he has also had a previous history of hypertension, hypercholesterolemia. INFLUENZA VACCINATIONS: Up-to-date. ALLERGIES: The patient has no known allergies. MEDICATIONS: Include Losartan/hydrochlorothiazide 100/12.5 and Ambien 10 mg at bedtime p.r.n. SOCIAL HISTORY: The patient denies any smoking or alcohol use per se. FAMILY HISTORY: Noncontributory. Father and grandfather did ; however, of heart attacks at the age of 50. REVIEW OF SYSTEMS: Outside of his sweats, chest discomfort, substernal, radiating to the left side of the neck down the left arm, the patient otherwise is moving all extremities well. Denies any problem with bowels or bladder. Does have probable with hiatal hernia and some reflux may be encouraging there. PHYSICAL EXAMINATION: GENERAL: A very pleasant white male in no apparent distress. VITAL SIGNS: Blood pressure 150/80, respiratory rate 18, pulse 68, afebrile. HEENT: The patient's head was atraumatic, normocephalic. Eyes: PERRLA without jaundice. The mouth and throat were normal. NECK: Supple without JVD, carotid bruits, or thyromegaly. LUNGS: Diminished throughout, but clear. CARDIOVASCULAR: Regular sinus rhythm. ABDOMEN: Soft, nontender. EXTREMITIES: No clubbing, cyanosis, or edema. NEUROLOGIC: The patient is alert and oriented x 3. LABORATORY DATA: The patient's CBC normal. Troponin is elevated at 0.03. BUN, creatinine, sodium, potassium all within normal limits. The patient is resting comfortably. We willl make further evaluation on him as indicated. Get the echocardiogram. IMPRESSION: Chest pain, history of hypertension, family history of heart disease, hypercholesterolemia, lung mass, possible bronchogenic cyst. We will go ahead and work that up further. Make further evaluation on him as indicated. LIONEL ROUSE MD DR: LORNA/ventura JOB#: [id number] / [id number]
[2018-01-15 14:44] VITALS: BP 148/70
--- NOTE | 2018-01-15 16:33 | CARD ---
MR#: [id number] Date of Study: 01/15/2018 Ordering Physician: LIONEL ROUSE, Referring Physician: LIONEL ROUSE, Tech: DIOMEDES Sylvester APPROVED REPORT EXAM: Two-dimensional and M-mode echocardiogram with Doppler and color Doppler. Other Information Quality : Fair INDICATION Dyspnea Chest Pain Elevated Troponin 2D DIMENSIONS Left Atrium(2D)4.2 (1.6-4.0cm)IVSd2.3 (0.7-1.1cm) Aortic Root(2D)3.4 (2.0-3.7cm)LVDd5.7 (3.9-5.9cm) LVOT Diameter2.2 (1.8-2.4cm)PWd1.0 (0.7-1.1cm) LVDs3.4 (2.5-4.0cm)FS (%) 41.0 % SV111.5 mlLVEF(%)75.0 (>50%) Aortic Valve AoV Peak Balwinder.148.0cm/Geovanny Peak GR.9.0mmHg LVOT Peak Balwinder.1.6cm/s Mitral Valve MV E Utdrhprc43.6cm/sMV DECEL [id number] MV A Nwkzcozh57.4cm/sE/A Ratio0.9 Tricuspid Valve TR P. Lryfccet07kc/sRAP [id number] TR Peak Gr.64iuNfKFIP44ieSy LEFT VENTRICLE The left ventricle is normal size. Proximal septal thickening is noted. The left ventricle is hyperdy namic. The Ejection Fraction is 70-75%. There is normal LV segmental wall motion. RIGHT VENTRICLE The right ventricle is normal size. There is normal right ventricular wall thickness. The right ventr icular systolic function is normal. ATRIA The left atrium is borderline dilated. The right atrium size is normal. The interatrial septum is int act with no evidence for an atrial septal defect or patent foramen ovale as noted on 2-D or Doppler i magtonya. AORTIC VALVE The aortic valve is trileaflet. Doppler and Color Flow revealed no significant aortic regurgitation. There is no significant aortic valvular stenosis. MITRAL VALVE There is no evidence of mitral valve prolapse. There is no mitral valve stenosis. Doppler and Color-f low revealed trace mitral regurgitation. TRICUSPID VALVE Doppler and Color Flow revealed trace tricuspid regurgitation. There is no tricuspid valve stenosis. PULMONIC VALVE The pulmonic valve is not well visualized. Doppler and Color Flow revealed no pulmonic valvular regur gitation. There is no pulmonic valvular stenosis. GREAT VESSELS The aortic root is normal in size. The ascending aorta is normal in size. The IVC is normal in size a nd collapses >50% with inspiration. PERICARDIAL EFFUSION There is no pleural effusion. There is no evidence of significant pericardial effusion. Critical Notification Critical Value: No <Conclusion> The left ventricle is hyperdynamic. The Ejection Fraction is 70-75%. There is normal LV segmental wall motion. Trace mitral regurgitation. Trace tricuspid regurgitation. There is no evidence of significant pericardial effusion. Signed by : Catrachito Davenport, Electronically Approved : 01/15/2018 16:32:31
[2018-01-15 20:00] VITALS: BP 140/67
[2018-01-15] MEDS: ZOLPIDEM 5 MG TABLET. PO SCH (21:20)
[2018-01-15 23:18] VITALS: BP 134/80
[2018-01-16] MEDS: HEPARIN PF for SUB-Q USE 5,000 UNIT/0.5 ML VIAL. SQ SCH ×2 (05:57→13:56)
[2018-01-16 06:00] VITALS: BP 140/79
[2018-01-16 06:41] LABS: BASO % 1 % (0-3); EOS # 0.2 x10^3/uL (0.0-0.7); EOS % 3 % (0-3); HEMATOCRIT 42.9 % (39.0-53.0); HEMOGLOBIN 14.5 g/dL (13.0-17.5); LYMPH % 25 % (24-48); MEAN CORPUSCULAR HEMOGLOBIN 30 pg (25-35); MEAN CORPUSCULAR HGB CONC 34 g/dL (31-37); MEAN CORPUSCULAR VOLUME 87 fL (79-100); MONO # 0.6 x10^3/uL (0.0-1.1); MONO % 8 % (0-9); NEUT # 4.9 x10^3uL (1.8-7.7); NEUT % 63 % (31-73); PLATELET COUNT 206 x10^3/uL (140-400); RED BLOOD COUNT 4.91 x10^6/uL (4.30-5.70); RED CELL DISTRIBUTION WIDTH 13.8 % (11.5-14.5); WHITE BLOOD COUNT 7.8 x10^3/uL (4.0-11.0)
[2018-01-16 06:46] LABS: CALCIUM 9.1 mg/dL (8.5-10.1); CREATININE 0.9 mg/dL (0.7-1.3); GFR 89.7
[2018-01-16] MEDS ORDERED: ASPIRIN ENTERIC COATED 81 MG TABLET.DR. PO SCH (08:00)
[2018-01-16] MEDS: hydroCHLOROthiazide 12.5 MG CAPSULE PO SCH (08:28)
[2018-01-16] MEDS: amLODIPine BESYLATE 5 MG TABLET PO SCH (08:29)
[2018-01-16] MEDS: LOSARTAN 50 MG TABLET. PO SCH (08:30)
--- NOTE | 2018-01-16 09:26 | PDOC ---
PROGRESS NOTES Diagnosis Problem Problems Medical Problems: (1) Chest pain Status: Acute Assessment Problems Medical Problems: (1) Chest pain Status: Acute 1. chest pain, atypical - Candy indeterminate, Echo with LVEF 70%, no wall motion abn . Aspirin daily. Ambulate. MPI today. 2. dyspnea, on exertion and orthopnea. 3. mediastinal mass - Suggest outpatient follow up with CTS. 4. hypertension, uncontrolled - Improved control with addition of norvasc. 5. fatigue, progressive - MPI today. Suggest outpatient sleep study. 6. family history of premature coronary disease 7. mild hyperlipidemia by history - LDL 116, HDL 40 Problems: Subjective no chest pain, breathing easy, no palpitations, awaiting stress test Objective Vital Signs Date Time Temp Pulse Resp B/P (MAP) Pulse Ox O2 Delivery O2 Flow Rate FiO2 01/16/18 08:34 Room Air 01/16/18 08:30 62 138/82 01/16/18 06:00 16 98 01/15/18 20:00 97.2 Intake and Output 01/16/18 07:00 Intake Total 2100 ml Balance 2100 ml Intake Oral 2100 ml # Voids 5 Abdomen: Normal bowel sounds, Soft, No tenderness Heart: Regular rate, Normal S1, Normal S2, No murmurs Extremities: No cyanosis, No edema, Normal pulses General: Alert, Oriented X3, Cooperative, No acute distress HEENT: Atraumatic, EOMI Lungs: Clear to auscultation, Normal air movement Neuro: Normal speech, Strength at 5/5 X4 ext Psych/Mental Status: Mental status NL, Mood NL Review of Relevant I have reviewed the following items amelia (where applicable) has been applied. Labs Laboratory Tests Test 01/14/18 15:41 01/14/18 16:52 01/14/18 18:35 01/14/18 20:30 D-Dimer (Rylee) 0.25 mg/L (0.00-0.50) Sodium Level 141 mmol/L (136-145) Potassium Level 4.2 mmol/L (3.5-5.1) Chloride Level 103 mmol/L (98-107) Carbon Dioxide Level 28 mmol/L (21-32) Anion Gap 10 (6-14) Blood Urea Nitrogen 19 mg/dL (8-26) Creatinine 0.9 mg/dL (0.7-1.3) Estimated GFR (Cockcroft-Gault) 89.7 Glucose Level 81 mg/dL (70-99) Calcium Level 9.5 mg/dL (8.5-10.1) Creatine Kinase 707 U/L (39-308) Creatine Kinase MB (Mass) 0.9 ng/mL (0.0-3.6) Creatine Kinase MB Relative Index 0.1 % (0-4) Troponin I Quantitative 0.030 ng/mL (0-0.055) 0.031 ng/mL (0-0.055) Urine Collection Type Unknown Urine Color Straw Urine Clarity Clear Urine pH 5.0 Urine Specific [place] 1.010 Urine Protein Neg (NEG-TRACE) Urine Glucose (UA) Neg mg/dL (NEG) Urine Ketones (Stick) Neg mg/dL (NEG) Urine Blood Neg (NEG) Urine Nitrite Neg (NEG) Urine Bilirubin Neg (NEG) Urine Urobilinogen Dipstick 0.2 mg/dL (0.2 mg/dL) Urine Leukocyte Esterase Neg (NEG) Urine RBC 0 /HPF (0-2) Urine WBC Occ /HPF (0-4) Urine Squamous Epithelial Cells Few /LPF Urine Bacteria 0 /HPF (0-FEW) Nasal Screen MRSA (PCR) Negative (Negative) White Blood Count 9.1 x10^3/uL (4.0-11.0) Red Blood Count 4.94 x10^6/uL (4.30-5.70) Hemoglobin 14.6 g/dL (13.0-17.5) Hematocrit 42.8 % (39.0-53.0) Mean Corpuscular Volume 87 fL (79-100) Mean Corpuscular Hemoglobin 30 pg (25-35) Mean Corpuscular Hemoglobin Concent 34 g/dL (31-37) Red Cell Distribution Width 14.1 % (11.5-14.5) Platelet Count 238 x10^3/uL (140-400) Neutrophils (%) (Auto) 61 % (31-73) Lymphocytes (%) (Auto) 27 % (24-48) Monocytes (%) (Auto) 8 % (0-9) Eosinophils (%) (Auto) 3 % (0-3) Basophils (%) (Auto) 1 % (0-3) Neutrophils # (Auto) 5.6 x10^3uL (1.8-7.7) Lymphocytes # (Auto) 2.5 x10^3/uL (1.0-4.8) Monocytes # (Auto) 0.7 x10^3/uL (0.0-1.1) Eosinophils # (Auto) 0.3 x10^3/uL (0.0-0.7) Basophils # (Auto) 0.1 x10^3/uL (0.0-0.2) Test 01/15/18 02:35 01/15/18 05:42 01/16/18 05:51 Troponin I Quantitative 0.030 ng/mL (0-0.055) Triglycerides Level 92 mg/dL (0-150) Cholesterol Level 174 mg/dL (0-200) LDL Cholesterol, Calculated 116 mg/dL (0-100) VLDL Cholesterol, Calculated 18 mg/dL (0-40) Non-HDL Cholesterol Calculated 134 mg/dL (0-129) HDL Cholesterol 40 mg/dL (40-60) Cholesterol/HDL Ratio 4.0 White Blood Count 6.9 x10^3/uL (4.0-11.0) 7.8 x10^3/uL (4.0-11.0) Red Blood Count 4.73 x10^6/uL (4.30-5.70) 4.91 x10^6/uL (4.30-5.70) Hemoglobin 14.0 g/dL (13.0-17.5) 14.5 g/dL (13.0-17.5) Hematocrit 41.1 % (39.0-53.0) 42.9 % (39.0-53.0) Mean Corpuscular Volume 87 fL (79-100) 87 fL (79-100) Mean Corpuscular Hemoglobin 30 pg (25-35) 30 pg (25-35) Mean Corpuscular Hemoglobin Concent 34 g/dL (31-37) 34 g/dL (31-37) Red Cell Distribution Width 14.1 % (11.5-14.5) 13.8 % (11.5-14.5) Platelet Count 209 x10^3/uL (140-400) 206 x10^3/uL (140-400) Neutrophils (%) (Auto) 56 % (31-73) 63 % (31-73) Lymphocytes (%) (Auto) 31 % (24-48) 25 % (24-48) Monocytes (%) (Auto) 9 % (0-9) 8 % (0-9) Eosinophils (%) (Auto) 4 % (0-3) 3 % (0-3) Basophils (%) (Auto) 1 % (0-3) 1 % (0-3) Neutrophils # (Auto) 3.9 x10^3uL (1.8-7.7) 4.9 x10^3uL (1.8-7.7) Lymphocytes # (Auto) 2.2 x10^3/uL (1.0-4.8) 2.0 x10^3/uL (1.0-4.8) Monocytes # (Auto) 0.6 x10^3/uL (0.0-1.1) 0.6 x10^3/uL (0.0-1.1) Eosinophils # (Auto) 0.2 x10^3/uL (0.0-0.7) 0.2 x10^3/uL (0.0-0.7) Basophils # (Auto) 0.1 x10^3/uL (0.0-0.2) 0.0 x10^3/uL (0.0-0.2) Sodium Level 140 mmol/L (136-145) 140 mmol/L (136-145) Potassium Level 4.0 mmol/L (3.5-5.1) 4.0 mmol/L (3.5-5.1) Chloride Level 105 mmol/L (98-107) 104 mmol/L (98-107) Carbon Dioxide Level 27 mmol/L (21-32) 28 mmol/L (21-32) Anion Gap 8 (6-14) 8 (6-14) Blood Urea Nitrogen 14 mg/dL (8-26) 18 mg/dL (8-26) Creatinine 0.8 mg/dL (0.7-1.3) 0.9 mg/dL (0.7-1.3) Estimated GFR (Cockcroft-Gault) 102.7 89.7 Glucose Level 98 mg/dL (70-99) 98 mg/dL (70-99) Calcium Level 8.9 mg/dL (8.5-10.1) 9.1 mg/dL (8.5-10.1) Magnesium Level 2.0 mg/dL (1.8-2.4) Medications Current Medications Ondansetron HCl (Zofran) 4 mg PRN Q4HRS PRN IV NAUSEA/VOMITING; Start 01/14/18 at 17:45; Stop 01/15/18 at 17:44; Status DC Aspirin (Children'S Aspirin) 324 mg 1X ONCE PO Last administered on 01/14/18at 17:54; Start 01/14/18 at 18:00; Stop 01/14/18 at 18:01; Status DC Aspirin (Children'S Aspirin) 81 mg STK-MED ONCE .ROUTE ; Start 01/14/18 at 17:52 ; Stop 01/14/18 at 17:53; Status DC Losartan Potassium (Cozaar) 100 mg DAILY PO Last administered on 01/16/18at 08: 30; Start 01/15/18 at 09:00 Zolpidem Tartrate (Ambien) 10 mg HS PO Last administered on 01/15/18at 21:20; Start 01/14/18 at 21:00 Heparin Sodium (Porcine) (Heparin Sq) 5,000 unit Q8HRS SQ Last administered on 01/16/18at 05:57; Start 01/14/18 at 22:00 Acetaminophen (Tylenol) 650 mg PRN Q6HRS PRN PO Headaches, Temp > 101.5F; Start 01/14/18 at 18:45 Morphine Sulfate (Morphine 4mg Syringe) 2 mg PRN Q1HR PRN IV PAIN; Start at 18:45 Hydrochlorothiazide (Microzide) 12.5 mg DAILY PO Last administered on at 08:28; Start 01/15/18 at 09:00 Amlodipine Besylate (Norvasc) 5 mg DAILY PO Last administered on 01/16/18at 08: 29; Start 01/15/18 at 10:30 Aspirin (Aspirin Enteric Coated) 81 mg [id number] PO Last administered on at 08:29; Start 01/16/18 at 08:00 Iohexol (Omnipaque 300 Mg/ml) 75 ml 1X ONCE IV Last administered on 01/15/18at 11:12; Start 01/15/18 at 10:20; Stop 01/15/18 at 10:21; Status DC Active Scripts Active Reported Ambien (Zolpidem Tartrate) 10 Mg Tablet 1 Tab PO QHS Losartan-Hctz 100-12.5 Mg Tab (Losartan/Hydrochlorothiazide) 1 Each Tablet 1 Tab PO DAILY Vitals/I & O Vital Sign - Last 24 Hours 01/15/18 01/15/18 01/15/18 01/15/18 10:25 11:36 14:44 20:00 Temp 97.2 Pulse 70 70 70 77 Resp 20 18 18 B/P (MAP) 138/84 (102) 138/84 148/70 (96) 140/67 (91) Pulse Ox 95 98 O2 Delivery Room Air Room Air 01/15/18 01/15/18 01/16/18 01/16/18 20:00 23:18 06:00 08:29 Pulse 64 55 62 Resp 18 16 B/P (MAP) 134/80 (98) 140/79 (99) 136/82 Pulse Ox 98 O2 Delivery Room Air Room Air Room Air 01/16/18 01/16/18 08:30 08:34 Pulse 62 B/P (MAP) 138/82 O2 Delivery Room Air Intake and Output 01/15/18 01/15/18 01/16/18 15:00 23:00 07:00 Intake Total 550 ml 1150 ml 400 ml Balance 550 ml 1150 ml 400 ml LILIBETH WEI APRN Jan 16, 2018 09:26
[2018-01-16 13:56] VITALS: BP 143/82
--- NOTE | 2018-01-16 14:09 | RAD ---
MR#: [id number] Date of Study: 01/16/2018 Ordering Physician: AVNI PAZ, Referring Physician: GABBY VILLAGOMEZ Tech: RT Doretha (R) (N) APPROVED REPORT Test Type: Exercise Stress Nurse/Tech: Kacey Loaiza Test Indications: CP Cardiac History: No known cardiac Resting Heart Rate: 71 bpm Resting Blood Pressure: 154/89mmHg Pretest Chest Pain: None Stress Symptoms Dyspnea, POST EXERCISE Target HR: Yes Max HR: 191 bpm 131% of Maximum Predicted HR: 145 bpm Exercise duration: 8:45 min:sec, 3 Stage Max Blood Pressure: 160/80mmHg Blood Pressure response to exercise: Normal blood pressure response during stress. Heart Rate response to exercise: Normal Chest Pain: No. Arrhythmia: No. ST Change: Yes. minimal ST depression on upslope INTERPRETATION Stress EKG Conclusion: Non-specific mild precordial ST segment depression of 1 mm. No clear ischemic findings noted. Imaging Protocol IMAGE PROTOCOL: Rest Tc-99m/stress Tc-99m 1 day Rest: Stress: Viability: Radiopharm.Tc99m MycbydrsqEe06z Sestamibi Svxc07lDm 34mCi Duration 20min. 15min. Img Date 01/16/2018 01/16/2018 Inj-Img [id number]. 60min. Rest Admin Site:IV - Right ForearmAdministrator: RT Doretha (R)(N) Stress Admin Site: IV - Right HandAdministrator: RT Doretha (R)(N) STRESS DATA End Diast. Vol.146.0mlAv. Heart Rate89.0bpm LVEDV index BSA2.0mlCardiac Output0.1L/min End Syst. Vol.41.0mlCO Index BSA9.3L/min LVESV index BSA1.0mlMyocardial Skov859.0g Eject. Yjcmonmm72.0% Stress Rates Pk. Fill Rate2.86EDV/secLVtime Pk. Fill 196.80msec Pk. Empty Rate4.98ESV/secLVtime Pk. Zauig672.18msec 1/3 Pk. Fill1.01EDV/sec Stress Scores Regional WT2.00Summed WT18.00 Regional WM0.00Summed WM0.00 The rest and stress images show normal perfusion, normal contraction and thickening. LV Perf. Quant 17 Seg. SSS3.00 17 Seg. SRS6.00 17 Seg. SDS2.00 Stress Defect Extent (% LAD)0.00Rest Defect Extent (% LAD)20.00Rev. Defect Extent (% LAD)0.00 Stress Defect Extent (% LCX) 27.50Rest Defect Extent (% LCX)16.30Rev. Defect Extent (% LCX)27.50 Stress Defect Extent (% RCA)0.00Rest Defect Extent (% RCA)0.00Rev. Defect Extent (% RCA)0.00 Stress Defect Extent (% CHRISSIE)4.80Rest Defect Extent (% CHRISSIE)14.10Rev. Defect Extent (% CHRISSIE)4.80 Other Information Quality:Fair Risk Assessment: Low Risk Conclusion 1. No clear stress induced EKG changes. 2. Average exercise capacity with 10.0 Mets 3. Normal perfusion at stress. Rest images suboptimal due to motion artifact. 4. Normal EF at > 70% 5. Low risk study Signed by : Avni Paz, Electronically Approved : 01/16/2018 14:08:50
[2018-01-16] MEDS ORDERED: AMLO5TAB2 PO (14:50)
[2018-01-16] MEDS ORDERED: ASPI-612 PO (14:50)
== END 2018-01-16 15:20 | disposition home or self-care (01) | DRG 313 ==
LOC: ER 14:57 → ICU 16:50 → OBSVTOIN 01-15 17:04
PROVIDERS: ADMIT Family Medicine; ATTEND Family Medicine
DX: R07.89 Other chest pain (principal); E78.00 Pure hypercholesterolemia, unspecified; I10 Essential (primary) hypertension; E78.5 Hyperlipidemia, unspecified; Z79.82 Long term (current) use of aspirin; Z82.49 Family history of ischemic heart disease and other diseases of the circulatory system; Z79.899 Other long term (current) drug therapy
CPT/HCPCS: 36415; 71260; 78452; 80048; 80061; 81001; 82553; 83735; 84484; 85025; 85379; 87641; 93005; 93017; 93306; 96374; 96376; A9500; G0378; G0379; Q9967

== ENCOUNTER 2020-05-19 16:55 | Emergency (ER) | payer SELFPAY ==
[~2020-05-19] VITALS: Ht 203.2 cm; Wt 132.4 kg
[~2020-05-19 16:55] MED LIST changes: +AMLO5TAB10 PO; +ASPI-889 PO; +DIPH50VI PO; -DIPH50VI12 PO; +HYDR-2155 PO; -HYDR-2758 PO; +LOSA1TAB25 PO; +ZOLP10TA PO
[2020-05-19 17:07] VITALS: BP 150/100
[2020-05-19] MEDS ORDERED: TRIA15OI TP (17:23)
[2020-05-19] MEDS ORDERED: PRED-220 PO (17:23)
--- NOTE | 2020-05-19 17:23 | PHYS DOC ---
Past History Past Medical History: Hypertension Additional Past Medical Histor: lung mass Past Surgical History: Other Additional Past Surgical Histo: Lipoma removed lower rigth rib. Smoking: Non-smoker Alcohol Use: None Drug Use: None General Adult EDM: Chief Complaint: SKIN RASH/ABSCESS HPI: HPI: 50-year-old male presents with rash on his right forearm and a couple areas on his right abdomen. Patient was out weed eating any diseases poison aleksandra. It is a vesicular rash that is intensely pruritic. It has been spreading for several days now. Patient also recently had a lipoma removed and has an abdominal drain. There are a couple scattered spots near the drain but this does not cause him much discomfort. He denies fever chills. He has no other complaints at this time. Review of Systems: Review of Systems: Constitutional: Denies fever or chills Eyes: Denies change in visual acuity HENT: Denies nasal congestion or sore throat Respiratory: Denies cough or shortness of breath Cardiovascular: Denies chest pain or edema GI: Denies abdominal pain, nausea, vomiting, bloody stools or diarrhea : Denies dysuria Musculoskeletal: Denies back pain or joint pain Integument: Vesicular rash right arm right abdomen Neurologic: Denies headache, focal weakness or sensory changes Endocrine: Denies polyuria or polydipsia Lymphatic: Denies swollen glands Psychiatric: Denies depression or anxiety Heart Score: Risk Factors: Risk Factors: DM, Current or recent (<one month) smoker, HTN, HLP, family history of CAD, obesity. Risk Scores: Score 0 - 3: 2.5% MACE over next 6 weeks - Discharge Home Score 4 - 6: 20.3% MACE over next 6 weeks - Admit for Clinical Observation Score 7 - 10: 72.7% MACE over next 6 weeks - Early Invasive Strategies Allergies: Allergies: Allergies Coded Allergies Type Severity Reaction Last Updated Verified No Known Drug Allergies 11/27/17 No Physical Exam: PE: Constitutional: Well developed, well nourished, no acute distress, non-toxic appearance. [] HENT: Normocephalic, atraumatic, bilateral external ears normal, oropharynx moist, no oral exudates, nose normal. [] Eyes: PERRLA, EOMI, conjunctiva normal, no discharge. [] Neck: Normal range of motion, no tenderness, supple, no stridor. [] Cardiovascular:Heart rate regular rhythm, no murmur [] Lungs & Thorax: Bilateral breath sounds clear to auscultation [] Abdomen: Bowel sounds normal, soft, no tenderness, no masses, no pulsatile mikayla s. [] Skin: Large vesicular patch of the right forearm with weeping and bulla. Small scattered areas of the right abdomen [] Back: No tenderness, no CVA tenderness. [] Extremities: No tenderness, no cyanosis, no clubbing, ROM intact, no edema. [] Neurologic: Alert and oriented X 3, normal motor function, normal sensory function, no focal deficits noted. [] Psychologic: Affect normal, judgement normal, mood normal. [] Current Patient Data: Vital Signs: Vital Signs Date Time Temp Pulse Resp B/P (MAP) Pulse Ox O2 Delivery O2 Flow Rate FiO2 05/19/20 17:07 98.1 64 15 150/100 (117) 100 Room Air EKG: EKG: [] Radiology/Procedures: Radiology/Procedures: [] Course & Med Decision Making: Course & Med Decision Making Pertinent Labs and Imaging studies reviewed. (See chart for details) The patient's rash is consistent with poison aleksandra. I will treat him with a shot of dexamethasone in the ER followed by a 10-day taper for home. I will also discharge him with triamcinolone 0.1% topical cream. He is stable for discharge at this time. [] Dragon Disclaimer: Dragon Disclaimer: This electronic medical record was generated, in whole or in part, using a voice recognition dictation system. Departure Departure: Impression: Primary Impression: Poison aleksandra dermatitis Disposition: 01 HOME/RESIDENCE PRIOR TO ADM Condition: STABLE Referrals: LIONEL ROUSE MD (PCP) Patient Instructions: Poison Aleksandra, [id number] Scripts Triamcinolone Acetonide (TRIAMCINOLONE ACETONIDE 0.1% OINT) 15 Gm Oint...g. 1 DEBBY TP BID for poison aleksandra, #1 TUBE Prov: MASSIMO LEGER DO 05/19/20 Prednisone (PREDNISONE) 10 Mg Tablet 10 MG PO UD for PREDNISONE TAPER, #33 TAB 0 Refills Take 5 tablets by mouth daily for 3 days, then take 4 tablets by mouth daily for 3 days, then take 2 tablet by mouth daily for 2 days, then take 1 tablet by mouth daily for 2 days, then stop. Prov: MASSIMO LEGER DO 05/19/20 Justification of Admission: Justification of Admission: Justification of Admission Dx: N/A MASSIMO LEGER DO May 19, 2020 17:23
[2020-05-19] MEDS ORDERED: DEXAMETHASONE SOD PHOS 10 MG/ML VIAL. IM ONE (17:30)
== END 2020-05-19 17:36 | disposition home or self-care (01) ==
LOC: ER 16:55
DX: L23.7 Allergic contact dermatitis due to plants, except food (principal); I10 Essential (primary) hypertension
CPT/HCPCS: 96372; 99283; J1100